=== PATIENT | female | born 1940 | race Caucasian/White ===

== ENCOUNTER 2022-12-13 06:33 | Day surgery (SDC) | payer MEDICARE, BC ==
[~2022-12-13] VITALS: Ht 165.1 cm; Wt 86.8 kg
[2022-12-13 06:50] VITALS: BP 139/67
[2022-12-13] MEDS ORDERED: fentaNYL/PF 50MCG/1 ML 2ML syringe IV ONE (06:55)
[2022-12-13] MEDS ORDERED: MIDAZolam 1mg/ml 10ml vial IV ONE (06:55)
[2022-12-13] MEDS ORDERED: normal saline 1000ml 1,000 ML IV SCH (06:55)
[2022-12-13] MEDS ORDERED: LEVO100T PO (06:56)
[2022-12-13] MEDS ORDERED: RIVA20TA PO (06:56)
[2022-12-13] MEDS ORDERED: TRIA1CAP88 PO (06:56)
[2022-12-13] MEDS ORDERED: SERT-432 PO (06:56)
[2022-12-13] MEDS ORDERED: FLEC100T2 PO (06:56)
--- NOTE | 2022-12-13 07:30 | NUR ---
Notified Dr. Perez of P waves on EKG. Dr. Perez states to hold off on starting the IV and he will look at it when he comes in.
--- NOTE | 2022-12-13 09:20 | NUR ---
Dr. Perez present and interpreting EKG. Procedure to be canceled, Dr. Perez making changes to her medications. Pt to be discharged home now.
== END 2022-12-13 09:40 | disposition home or self-care (01) ==
LOC: SSTAY O 06:33
PROVIDERS: ATTEND Internal Medicine Cardiovascular Disease
DX: I48.0 Paroxysmal atrial fibrillation (principal); Z53.8 Procedure and treatment not carried out for other reasons; Z88.1 Allergy status to other antibiotic agents; Z85.3 Personal history of malignant neoplasm of breast; Z90.12 Acquired absence of left breast and nipple; Z90.710 Acquired absence of both cervix and uterus; Z98.890 Other specified postprocedural states; Z79.899 Other long term (current) drug therapy
CPT/HCPCS: 93005; A4620; J7030

== ENCOUNTER 2024-10-04 07:33 | Day surgery (SDC) | payer MEDICARE, BC ==
[2024-10-04] VITALS (11 sets, daily range): BP systolic 106–139; BP diastolic 52–94; PULSE 54–95; RESP 12–17; TEMP 98.2; O2SAT 98–100
[~2024-10-04 07:33] MED LIST: FLEC100T2 PO; LEVO100T PO; RIVA20TA PO; SERT-432 PO; TRIA1CAP88 PO
[2024-10-04] MEDS ORDERED: AMI200T PO (08:09)
[2024-10-04] MEDS ORDERED: prevagen PO (08:12)
[2024-10-04 09:09] LABS: BASOPHILS # (AUTO) 0.1 X10'3 (0-0.2); BASOPHILS % (AUTO) 1.1 % (0-1); EOSINOPHILS # (AUTO) 0.1 X10'3 (0-0.9); EOSINOPHILS % (AUTO) 1.2 % (0-6); HEMOGLOBIN 14.3 g/dl (12.0-16.0); LYMPHOCYTES # (AUTO) 1.3 X10'3 (1.1-4.8); MEAN CORPUSCULAR HGB CONC 34.7 g/dL (33.0-36.5); MEAN CORPUSCULAR VOLUME 92.2 FL (78-98); MEAN PLATELET VOLUME 7.4 FL (7.4-10.4); MONOCYTES # (AUTO) 0.4 X10'3 (0-0.9); MONOCYTES % (AUTO) 6.2 % (2-12); NEUTROPHILS # (AUTO) 4.3 X10'3 (1.8-7.7); NEUTROPHILS % (AUTO) 70.5 % (42-75); PLATELET COUNT 255 X10'3 (140-440); RED BLOOD COUNT 4.45 X10'6 (4.20-5.60); WHITE BLOOD COUNT 6.1 X10'3 (4.5-11.0)
[2024-10-04] MEDS: fentaNYL/PF 50MCG/1 ML 2ML syringe IV ONE (09:19)
[2024-10-04] MEDS: MIDAZolam 1mg/ml 10ml vial IV ONE (09:19)
[2024-10-04] MEDS: normal saline 1000ml 1,000 ML IV SCH (09:20)
[2024-10-04 09:21] LABS: ALBUMIN 3.4 G/DL (3.4-5.0); ANION GAP 7 (8-16); BLOOD UREA NITROGEN 25 MG/DL (7-18); BUN/CREATININE RATIO 27.8 (10.0-20.0); CALCIUM 9.3 MG/DL (8.5-10.1); CHLORIDE 99 MMOL/L (99-107); GLUCOSE 100 MG/DL (70-104); MAGNESIUM 1.8 MG/DL (1.5-2.4); POTASSIUM 3.3 MMOL/L (3.5-5.1); SODIUM 136 MMOL/L (135-145); TOTAL CARBON DIOXIDE 30.5 MMOL/L (24-32); eGFR 60 ML/MIN
[2024-10-04 09:24] LABS: PROTHROMBIN TIME 10.7 SECONDS (9.0-12.0)
[2024-10-04] MEDS: rivaroxaban 20mg tablet PO ONE (09:52)
== END 2024-10-04 11:10 | disposition home or self-care (01) ==
LOC: SSTAY O 07:33
PROVIDERS: ATTEND Internal Medicine Cardiovascular Disease
DX: I48.0 Paroxysmal atrial fibrillation (principal); R94.31 Abnormal electrocardiogram [ECG] [EKG]; I10 Essential (primary) hypertension; E89.0 Postprocedural hypothyroidism; Z85.3 Personal history of malignant neoplasm of breast; Z79.01 Long term (current) use of anticoagulants; Z79.890 Hormone replacement therapy; Z79.899 Other long term (current) drug therapy; Z90.12 Acquired absence of left breast and nipple; Z90.710 Acquired absence of both cervix and uterus; Z96.653 Presence of artificial knee joint, bilateral; Z98.890 Other specified postprocedural states; Z88.0 Allergy status to penicillin; Z80.9 Family history of malignant neoplasm, unspecified; Z82.49 Family history of ischemic heart disease and other diseases of the circulatory system
CPT/HCPCS: 36415; 80048; 83735; 85025; 85610; 92960; 93005; J2250; J3010; J7030

== ENCOUNTER 2024-11-29 06:55 | Day surgery (SDC) | payer MEDICARE, BC ==
[~2024-11-29] VITALS: Ht 165.1 cm; Wt 82.4 kg
[2024-11-29] VITALS (8 sets, daily range): BP systolic 113–152; BP diastolic 45–108; PULSE 48–93; RESP 16; TEMP 98.2; O2SAT 98–100
[~2024-11-29 06:55] MED LIST changes: +AMI200T PO; -FLEC100T2 PO; +prevagen PO
[2024-11-29] MEDS ORDERED: Prevagen PO (07:25)
[2024-11-29 07:50] LABS: BASOPHILS # (AUTO) 0.1 X10'3 (0-0.2); BASOPHILS % (AUTO) 1.2 % (0-1); EOSINOPHILS # (AUTO) 0.1 X10'3 (0-0.9); EOSINOPHILS % (AUTO) 1.4 % (0-6); HEMATOCRIT 39.4 % (35.0-45.0); HEMOGLOBIN 13.6 g/dl (12.0-16.0); LYMPHOCYTES # (AUTO) 1.4 X10'3 (1.1-4.8); LYMPHOCYTES % (AUTO) 23.2 % (21-51); MEAN CORPUSCULAR HEMOGLOBIN 32.4 PG (27.0-31.0); MEAN CORPUSCULAR HGB CONC 34.5 g/dL (33.0-36.5); MEAN CORPUSCULAR VOLUME 93.9 FL (78-98); MEAN PLATELET VOLUME 7.2 FL (7.4-10.4); MONOCYTES # (AUTO) 0.4 X10'3 (0-0.9); MONOCYTES % (AUTO) 6.8 % (2-12); NEUTROPHILS # (AUTO) 4.1 X10'3 (1.8-7.7); NEUTROPHILS % (AUTO) 67.4 % (42-75); PLATELET COUNT 234 X10'3 (140-440); RED CELL DISTRIBUTION WIDTH 13.6 % (11.5-14.5); WHITE BLOOD COUNT 6.1 X10'3 (4.5-11.0)
[2024-11-29 08:01] LABS: ALBUMIN 3.4 G/DL (3.4-5.0); CALCIUM 9.5 MG/DL (8.5-10.1); MAGNESIUM 1.8 MG/DL (1.5-2.4)
[2024-11-29 08:02] LABS: INR 1.5 INR; PROTHROMBIN TIME 14.8 SECONDS (9.0-12.0)
[2024-11-29 08:29] LABS: ANION GAP 5 (8-16); BLOOD UREA NITROGEN 24 MG/DL (7-18); BUN/CREATININE RATIO 26.1 (10.0-20.0); CHLORIDE 106 MMOL/L (99-107); CREATININE 0.92 MG/DL (0.40-0.90); GLUCOSE 97 MG/DL (70-104); POTASSIUM 3.5 MMOL/L (3.5-5.1); SODIUM 142 MMOL/L (135-145); eCRCL 40 ML/MIN; eGFR 58 ML/MIN
[2024-11-29] MEDS: fentaNYL/PF 50MCG/1 ML 2ML syringe IV ONE (09:18)
[2024-11-29] MEDS: MIDAZolam 1mg/ml 10ml vial IV ONE (09:18)
[2024-11-29] MEDS: normal saline 1000ml 1,000 ML IV SCH (09:19)
== END 2024-11-29 10:40 | disposition home or self-care (01) ==
LOC: SSTAY O 06:55
PROVIDERS: ATTEND Internal Medicine Cardiovascular Disease
DX: I48.0 Paroxysmal atrial fibrillation (principal); I10 Essential (primary) hypertension; E03.9 Hypothyroidism, unspecified; I47.29 Other ventricular tachycardia; M06.9 Rheumatoid arthritis, unspecified; Z90.710 Acquired absence of both cervix and uterus; Z98.890 Other specified postprocedural states; Z79.899 Other long term (current) drug therapy; Z90.12 Acquired absence of left breast and nipple; Z85.3 Personal history of malignant neoplasm of breast; Z82.49 Family history of ischemic heart disease and other diseases of the circulatory system; Z80.9 Family history of malignant neoplasm, unspecified; Z96.653 Presence of artificial knee joint, bilateral; Z88.0 Allergy status to penicillin
CPT/HCPCS: 36415; 80048; 83735; 85025; 85610; 92960; 93005; J2250; J3010; J7030